=== PATIENT | female | born 1965 | race Caucasian/White ===

== ENCOUNTER 2020-01-13 05:37 | Day surgery (SDC) | payer OTHER ==
[2020-01-13] MEDS ORDERED: LACTATED RINGERS 1,000 ML ONE (06:42)
[2020-01-13] MEDS ORDERED: ONDANSETRON INJ 4 MG/2 ML VIAL ONE (07:00)
[2020-01-13] MEDS ORDERED: LIDOCAINE 1% 10 ML VIAL INJ ONE (07:00)
[2020-01-13] MEDS ORDERED: DEXAMETHASONE INJ 10 MG/ML VIAL ONE (07:00)
[2020-01-13] MEDS ORDERED: PROPOFOL 200 MG/20 ML VIAL IV ONE (07:00)
--- NOTE | 2020-01-13 10:49 | OP ---
DATE OF PROCEDURE: 01/13/20 PREOPERATIVE DIAGNOSIS: 1. Screening colonoscopy. POSTOPERATIVE DIAGNOSIS: 1. Screening colonoscopy. PROCEDURE: 1. Colonoscopy with single excision of polyp at 22 cm, 2.5 mm. SURGEON: Timo Dimas MD ANESTHESIA: General. FINDINGS: As described. PROCEDURE: General anesthesia was induced in the lateral position. Digital rectal exam was normal. The colonoscope was introduced and passed to the cecum. We did not get into the cecum itself, but we could see the cecum in the corner. We did have some difficulty getting to it, but ultimately when we did and at that time or just before, the patient began coughing and risk of possible aspiration, but in straightening the scope, we had examined the entire length at least twice and then ultimately getting to the cecum with minimal loop. Again, we got to the cecum. Upon withdrawal, there were no polyps seen throughout the ascending, transverse and descending colon. At about 22 cm in the rectosigmoid area, there was a small polyp, approximately 2.5 mm that was excised completely with forceps. No other polyps were seen. Retroflexion was not performed at this time as the patient was still coughing and we needed to get her awakened. The patient tolerated the procedure otherwise well and was taken to Recovery to be discharged. #[id number] cc: AMIRA Day
[2020-01-13 13:00] VITALS: BP 132/77; TEMP 97.3; O2SAT 100
== END 2020-01-13 12:00 | disposition home or self-care (01) ==
LOC: AMB 05:37
PROVIDERS: ATTEND Surgery
DX: K62.5 Hemorrhage of anus and rectum (principal); K63.5 Polyp of colon; I10 Essential (primary) hypertension; E03.9 Hypothyroidism, unspecified; E66.9 Obesity, unspecified; E78.00 Pure hypercholesterolemia, unspecified; Z79.899 Other long term (current) drug therapy
CPT/HCPCS: 00811; 45380; J1100; J2405; J3490; J7120